=== PATIENT | male | born 1990 | race Caucasian/White ===

== ENCOUNTER 2020-12-29 13:26 | Emergency (ER) | payer SELFPAY ==
[2020-12-29 13:46] VITALS: BP 131/82; PULSE 110; RESP 18; TEMP 36.7; O2SAT 95; BMI 22.6
--- NOTE | 2020-12-29 14:14 | ED_ITS ---
HPI - Wound/Laceration General: Chief Complaint: Wound/Laceration Stated Complaint: wrist lacceration. Time Seen by Provider: 12/29/20 13:39 Source: patient Mode of arrival: ambulatory Limitations: no limitations History of Present Illness: HPI narrative: Patient is a 30-year-old male who presents to ED today with a complaint of a laceration to his left wrist/forearm that he sustained accidentally after cutting it with a box knife while working on a coffee table. Tetanus UTD. Onset (ago): hour(s) Extremity Location: Left: forearm Place: home Patient tetanus UTD: Yes Context: accidental Associated symptoms: Reports no associated symptoms Treatments prior to arrival: tourniquet Review of Systems Musc: Reports: extremity pain (L forearm) Skin/Breast: Reports: other (laceration L wrist/forearm) Neuro: Denies: numbness in extremities, weakness in extremities or sensory changes Physical Exam Const: COMMON NORMALS: no acute distress, average body habitus, patient oriented x3, no limitations, alert and well nourished Extremity: GENERAL: Yes normal exam except as noted OTHER: 1cm laceration to volar ulnar L wrist/forearm Neuro: COMMON NORMALS: patient oriented x3, moves all extremities, no focal motor deficits and no sensory deficits noted SENSORIUM/ORIENTATION: Yes alert OTHER: can flex/extend all digits and wrist joint against resistance; normal cap refill and pulses Skin: Full Arm Front Left: 1. 1cm laceration; no bleeding; NV intact Procedures Laceration Laceration 1: Site: upper extremity Side (If applicable): left Size (cm): 1.0 Description: linear Depth: simple, single layer Local Anesthetic: lidocaine 1% and with epi Amount of anesthesia used (mL): 1.0 Pre-repair: wound explored and irrigated extensively Skin layer closed with: nylon Size (cm): 5-0 Number of sutures: 2 Technique: simple, interrupted Course Vital Signs: Vital signs: Vital Signs Temperature 98.0 F 12/29/20 13:46 Pulse Rate 110 H 12/29/20 13:46 Respiratory Rate 18 12/29/20 13:46 Blood Pressure 131/82 12/29/20 13:46 Pulse Oximetry 95 12/29/20 13:46 Discharge Plan Discharge Patient Disposition: Home Clinical Impression: Laceration of forearm, left Qualifiers: Encounter type: initial encounter Qualified Code(s): S51.812A - Laceration without foreign body of left forearm, initial encounter Condition: Stable Discharge Orders: Discharge ED (Routine); Ordered 12/29/20 Ordered By: Magy Morel Patient Instructions: Suture Care (ED), Laceration (ED) Activity Restrictions/Additional Instructions: Keep wound/laceration clean with warm soap and water twice daily. Monitor for signs of infection such as redness, swelling, increased pain, or drainage. Please seek medical re-evaluation if these occur. If you received sutures today these will need to be removed (unless you were told by the provider that they are absorbable). The provider should have discussed with you the length of time until removal-7 DAYS. You may return to the emergency department for this serv ice. If your wound was closed with Steri-Strips or glue/adhesive these will fall off within the next week or so. Coding Level of Care Code ED Instrument Calibrator for Mahogany Zapata
== END 2020-12-29 15:00 | disposition home or self-care (01) ==
PROVIDERS: Emergency Provider Physician Assistant
DX: S51.812A Laceration without foreign body of left forearm, initial encounter (principal); W26.0XXA Contact with knife, initial encounter
CPT/HCPCS: 12001; 99282

== ENCOUNTER → 2022-06-13 14:38 | Outpatient (BNVA) | payer MEDICAID, SELFPAY | PROVIDERS: Visit Provider Nurse Practitioner Family | DX: M25.511 Pain in right shoulder (principal) | CPT/HCPCS: 73030 ==

== ENCOUNTER 2024-06-10 11:24 | Emergency (ER) | payer BC, MEDICAID, SELFPAY ==
[2024-06-10 11:26] VITALS: BP 139/78; PULSE 118; RESP 13; TEMP 37.2; O2SAT 95; BMI 25.0
--- NOTE | 2024-06-10 11:30 | CT_ITS ---
WS: [id number] CT HEAD NONCONTRAST HISTORY: new onset seizures, headache TECHNIQUE: Contiguous axial imaging performed through the brain. Bone and soft tissue windows. Sagitt al and coronal reformats reviewed. All CT scans at [facility] use at least one of these dose optimization techniques: automated exposure control; mA and/or kV adjustment per patient size (includ es targeted exams where dose is matched to clinical indication); or iterative reconstruction. DLP: 1017.78 mGy.cm COMPARISON: 08/29/2016 No acute intracranial hemorrhage, midline shift or mass effect. No atrophy or prior infarcts or herniation. Ventricles: Normal size with no hydrocephalus. Paranasal sinuses: Mild mucoperiosteal thickening in the frontal and anterior ethmoid air cells. No a ir-fluid levels. Mastoid air cells: Increasing fluid and soft tissue in the RIGHT mastoid air cells and extending into the inner ear surrounding the ossicles. Similar to the prior study. Calvarium and scalp: Skull is intact with no soft tissue edema or swelling. CT/CT head wo con* 63388 IMPRESSION: 1. No acute intracranial hemorrhage or edema. 2. No prior infarct or hydrocephalus. 3. Increased soft tissue in the RIGHT mastoid air cells extending into the inn er ear surround the ossicles. Suspect cholesteatoma.
--- NOTE | 2024-06-10 11:32 | ECG_ITS ---
[facility] Test Date: 2024-06-10 Pat Name: Lele Tejeda Department: Room: Gender: Male Design Inserter: : 1990 Requested By: Angelica Bunch Order Number: [id number] Vallecillo MD: Flaco Rubio M.D. Measurements Intervals [place] Rate: 118 P: 57 [place]: 144 QRS: 72 QRSD: 87 T: 51 QT: 303 QTc: 425 Interpretive Statements SINUS TACHYCARDIA No previous ECG available for comparison Electronically Signed On 06-12-2024 22:02:20 IVORY POLISHER by Flaco Rubio M.D. [id number]
--- NOTE | 2024-06-10 11:41 | W.ED.SEIZURE ---
HPI - Seizure General: Chief Complaint: Seizure Stated Complaint: Seizures Time Seen by Provider: 06/10/24 11:26 History of Present Illness: HPI Narrative: 33-year-old man with a history of anxiety who presents emergency room after having a possible seizure. He has no diagnosis of seizures. Family reports that he seized for a few minutes. It started with shaking of his leg and then full body shaking. He did bite his tongue. No loss of bowel or bladder. He did have some postictal confusion/somnolence. This has now resolved. He says he does not remember the episode. He also reports a headache. Related Data Home Medications Medication Instructions Recorded Confirmed No Known Home Medications 06/10/24 06/10/24 Allergies Allergy/AdvReac Type Severity Reaction Status Date / Time No Known Allergies Allergy Verified 06/10/24 11:36 Review of Systems Narrative: Constitutional symptoms: Negative except as documented in HPI. Skin symptoms: Negative except as documented in HPI. Eye symptoms: Negative except as documented in HPI. ENMT symptoms: Negative except as documented in HPI. Respiratory symptoms: Negative except as documented in HPI. Cardiovascular symptoms: Negative except as documented in HPI. Gastrointestinal symptoms: Negative except as documented in HPI. Genitourinary symptoms: Negative except as documented in HPI. Musculoskeletal symptoms: Negative except as documented in HPI. Neurologic symptoms: Negative except as documented in HPI. Psychiatric symptoms: Negative except as documented in HPI. Endocrine symptoms: Negative except as documented in HPI. [facility] ED PFSH: Medical History Generalized anxiety disorder Psychiatric care Physical Exam Narrative: EXAM NARRATIVE: General: Alert, no acute distress. Skin: Warm, dry. Head: Normocephalic, atraumatic. Neck: Supple, trachea midline. Eye: Extraocular movements are intact. Ears, nose, mouth and throat: mucosa moist. Cardiovascular: Regular, Normal peripheral perfusion. Respiratory: Lungs are clear to auscultation, respirations are non-labored, breath sounds are equal, Symmetrical chest wall expansion. Gastrointestinal: Soft, Nontender, Non distended Musculoskeletal: Normal ROM, no deformity. Neurological: Alert and oriented, No focal neurological deficit observed. Psychiatric: Cooperative, appropriate mood & affect. Course Vital Signs: Vital signs: Vital Signs Temperature 99 F 06/10/24 11:26 Pulse Rate 128 H 06/10/24 13:23 Respiratory Rate 21 H 06/10/24 13:23 Blood Pressure 171/83 06/10/24 13:23 Pulse Oximetry 95 06/10/24 13:23 Oxygen Delivery Me thod Room Air 06/10/24 13:23 MDM - Seizure MDM Narrative Medical decision making narrative: Medical decision making: Differential diagnosis including but not limited to and based on the above HPI, review of systems and physical exam: Concern for seizure. Workup done to evaluate severity with a lactic acid. Orders placed to evaluate differential diagnosis based on the above differential, HPI and physical exam EKG: Time 11:32 AM. Rate 118. Sinus tachycardia, No ST-T changes, no ectopy, normal DE & QRS intervals, This was reviewed and interpreted by myself the ER physician at 1135 Lab Review: Laboratory results were reviewed and interpreted by myself the emergency room physician. No leukocytosis. No anemia. BUN and creatinine are near normal at 15 and 1.1. Lactate was mildly elevated at 2.5. CT of the head without contrast: No acute hemorrhage or edema. No obvious masses. There are some right mastoid air cells. I discussed this with him and his and this is a known finding and they were planning on some point getting an MRI. This was reviewed and interpreted by myself the emergency room physician. I also reviewed the radiology report. Consultation: I spoke with Dr. Rodriguez who is on-call for the neurology service. He will see the patient in follow-up in the clinic. No initiation of antiepileptics at this point. Has only had 1 seizure. He recommends an MRI as an outpatient with and without contrast. I reviewed the patient's medical record. Reexamination: Patient remained stable. No increased work of breathing. No altered mental status. No focal motor deficits. I discussed the importance of not driving as he could injure or kill himself or others if he had a seizure while he was driving. He expresses understanding. Assessment and plan: Seizure Anxiety Tachypnea/hypocapnia - Discharged home - Discussed findings and plan with patient. Answered any questions. - All laboratory values were reviewed and interpreted personally by myself, the ER physician - All imaging was reviewed and interpreted personally by myself, the ER physician. - Evaluation and treatment of this problem were appropriate in the emergency setting Lab Data 06/10/24 11:11 06/10/24 11:11 Labs: Radiology Impressions Head CT 06/10/24 11:30 IMPRESSION: 1. No acute intracranial hemorrhage or edema. 2. No prior infarct or hydrocephalus. 3. Increased soft tissue in the RIGHT mastoid air cells extending into the inner ear surround the ossicles. Suspect cholesteatoma. Laboratory Results WBC 9.42 10^3/uL (3.29-11.43) 06/10/24 11:11 RBC 5.19 10^6/uL (3.85-5.65) 06/10/24 11:11 Hgb 16.40 g/dL (11.27-16.99) 06/10/24 11:11 Hct 44.9 % (37-53) 06/10/24 11:11 MCV 86.5 fl (82-101) 06/10/24 11:11 MCH 31.6 pg (27-33) 06/10/24 11:11 MCHC 36.5 g/dL (30-55) 06/10/24 11:11 RDW 11.7 % (12.1-15.1) L 06/10/24 11:11 Plt Count 297 10^3/cmm (157-399) 06/10/24 11:11 MPV 9.2 fL (7.4-10.4) 06/10/24 11:11 Neut % (Auto) 66.9 % 06/10/24 11:11 Lymph % (Auto) 22.1 % 06/10/24 11:11 [place] % (Auto) 9.3 % 06/10/24 11:11 Eos % (Auto) 0.6 % 06/10/24 11:11 Baso % (Auto) 0.5 % 06/10/24 11:11 Neut # (Auto) 6.29 10^3/uL (1.8-7.7) 06/10/24 11:11 Lymph # (Auto) 2.1 10^3/uL (0.8-4.8) 06/10/24 11:11 [place] # (Auto) 0.9 10^3/uL (0.2-0.9) 06/10/24 11:11 Eos # (Auto) 0.1 10^3/uL (0.0-0.8) 06/10/24 11:11 Baso # (Auto) 0.1 10^3/uL (0.0-0.1) 06/10/24 11:11 Nucleated RBC % (auto) 0 % 06/10/24 11:11 Nucleated RBCs # 0.0 /100WBC 06/10/24 11:11 Specimen Type Arterial 06/10/24 11:45 Sample Site Radial, right 06/10/24 11:45 ABG pH 7.52 (7.35-7.45) H 06/10/24 11:45 ABG pCO2 34.5 mmHg (35-45) L 06/10/24 11:45 ABG pO2 55.6 mmHg (80.0-100.0) L 06/10/24 11:45 ABG PO2/FiO2 Ratio 264 06/10/24 11:45 ABG HCO3 27.8 mmol/L (22-26) H 06/10/24 11:45 ABG O2 Saturation 92.5 06/10/24 11:45 ABG Base Excess 5.1 mmol/L (-2.0-2.0) H 06/10/24 11:45 Dwayne Test Pos 06/10/24 11:45 A-a O2 Gradient 6.8 mmHg (5-10) 06/10/24 11:45 Hematocrit 49.6 % (42-52) 06/10/24 11:45 Hgb O2 Saturation 91.4 % (95-100) L 06/10/24 11:45 Carboxyhemoglobin 1.0 %THgb (0.4-20.1) 06/10/24 11:45 Methemoglobin 0.2 % (0.4-1.5) L 06/10/24 11:45 Total Hemoglobin 16.2 g/dL (14-18) 06/10/24 11:45 Sodium 140.0 mmol/L (131-143) 06/10/24 11:45 Potassium 3.8 mmol/L (3.5-5.0) 06/10/24 11:45 Glucose 85.0 mg/dL (70-115) 06/10/24 11:45 Ionized Calcium 1.1 mmol/L (1.1-1.4) 06/10/24 11:45 O2 Delivery Device Room air 06/10/24 11:45 FiO2 21.0 % 06/10/24 11:45 Home Health Administrator ID Monro 06/10/24 11:45 Sodium 138 mmol/L (136-145) 06/10/24 11:11 Potassium 3.6 mmol/L (3.5-5.1) 06/10/24 11:11 Chloride 98 mmol/L (98-107) 06/10/24 11:11 Carbon Dioxide 29 mmol/L (22-29) 06/10/24 11:11 Anion Gap 14.6 (5-19) 06/10/24 11:11 BUN 15 mg/dL (6-20) 06/10/24 11:11 Creatinine 1.1 mg/dL (0.7-1.2) 06/10/24 11:11 GFR Calculation 77.1 mL/min (90-130) L 06/10/24 11:11 Glucose 91 mg/dL (65-115) 06/10/24 11:11 Calculated Osmolality 286 mOsm/kg (285-295) 06/10/24 11:11 Lactic Acid 2.4 mmol/L (0.5-2.2) H 06/10/24 11:11 Calcium 9.5 mg/dL (8.5-10.5) 06/10/24 11:11 Total Bilirubin 0.4 mg/dL (0.15-1.2) 06/10/24 11:11 AST 16 U/L (0-40) 06/10/24 11:11 ALT 17 U/L (0-41) 06/10/24 11:11 Alkaline Phosphatase 120 U/L (40-130) 06/10/24 11:11 Total Protein 7.8 g/dL (6.6-8.7) 06/10/24 11:11 Albumin 4.4 g/dL (3.5-5.2) 06/10/24 11:11 Globulin 3.4 g/dL (1.3-4.6) 06/10/24 11:11 Urine Color Yellow (Yellow) 06/10/24 12:45 Urine Appearance Cloudy (CLEAR) A 06/10/24 12:45 Urine pH 7.0 (5-7) 06/10/24 12:45 Ur Specific [place] 1.026 (1.005-1.030) 06/10/24 12:45 Urine Protein Negative (Negative) 06/10/24 12:45 Urine Glucose (UA) Negative (Normal) 06/10/24 12:45 Urine Ketones Trace (Negative) 06/10/24 12:45 Urine Blood Negative (Negative) 06/10/24 12:45 Urine Nitrate Negative (Negative) 06/10/24 12:45 Urine Bilirubin Negative (Negative) 06/10/24 12:45 Urine Urobilinogen 1.0 mg/dL (Negative) 06/10/24 12:45 Ur Leukocyte Esterase Negative (Negative) 06/10/24 12:45 Urine RBC 0-2 /hpf (0-2) 06/10/24 12:45 Urine WBC 0-5 /hpf (0-5) 06/10/24 12:45 Ur Squamous Epith Cells 0-5 /hpf (0-5) 06/10/24 12:45 Amorphous Sediment Not Reportable 06/10/24 12:45 Urine Bacteria None seen /hpf (NONE) 06/10/24 12:45 Hyaline Casts 0.81 /lpf 06/10/24 12:45 Urine Opiates Screen Negative ng/mL (Negative) 06/10/24 12:45 Ur Barbiturates Screen Negative ng/mL (Negative) 06/10/24 12:45 Ur Phencyclidine Scrn Negative ng/mL (Negative) 06/10/24 12:45 Ur Amphetamines Screen Positive ng/mL (Negative) H 06/10/24 12:45 U Benzodiazepines Scrn Negative ng/mL (Negative) 06/10/24 12:45 Urine Cocaine Screen Negative ng/mL (Negative) 06/10/24 12:45 U Marijuana (THC) Screen Negative ng/mL (Negative) 06/10/24 12:45 All radiology interpretation(s) finalized by discharge Discharge Plan Discharge Patient Disposition: Home Clinical Impression: New onset seizure Condition: Stable Prescriptions: No Action No Known Home Medications Discharge Orders: Discharge ED (Routine); Ordered 06/10/24 Ordered By: Angelica Gomez Referrals: Xu Rodriguez MD [Physician] - 4-7 days (Please call for a follow-up appointment with Dr. Rodriguez.) Discharge Diet: Usual diet Discharge Activity: Limit activity as instructed Patient Instructions: New-Onset Seizure in Adults (ED), Opioid Safety, Pain Management Activity Restrictions/Additional Instructions: Please follow-up with your primary provider in the next few days. Dr. Rodriguez recommends that your provider order an MRI with and without contrast to rule out MTS. Medial temporal sclerosis No driving until you are cleared by your primary care physician or by neurology. Please call for an appointment with neurology as soon as possible. Thank you for choosing [facility] for your healthcare needs today. Please realize this is an emergency room and that we are providing you with a medical screening exam and this may not be complete and all inclusive of all the testing and or work up that you may need to determine your ailment or severity of your illness. You have been screened and evaluated and felt safe for discharge. Health conditions do change or evolve sometimes and as such it is important that you follow up with your Primary Doctor to be re checked, 3-5 days is a general good time frame for follow up. You are always welcome to return to the ED for re assessment if your symptoms are worsening or you have new concerns Coding Level of Care Code ED Floorworker Lasting for Mahogany Zapata
[2024-06-10 11:49] LABS: Basophils # 0.1 10^3/uL (0.0-0.1); Basophils % 0.5 %; Eosinophils # 0.1 10^3/uL (0.0-0.8); Eosinophils % 0.6 %; Hematocrit 44.9 % (37-53); Lymphocytes # 2.1 10^3/uL (0.8-4.8); Lymphocytes % 22.1 %; Mean Corpuscular HGB Conc 36.5 g/dL (30-55); Mean Corpuscular Hemoglobin 31.6 pg (27-33); Mean Corpuscular Volume 86.5 fl (82-101); Mean Platelet Volume 9.2 fL (7.4-10.4); Monocytes # 0.9 10^3/uL (0.2-0.9); Monocytes % 9.3 %; Neutrophils # 6.29 10^3/uL (1.8-7.7); Neutrophils % 66.9 %; Nucleated Red Blood Cells % 0 %; Platelet Count 297 10^3/cmm (157-399); Red Blood Count 5.19 10^6/uL (3.85-5.65); Red Cell Distribution Width 11.7 % (12.1-15.1); White Blood Count 9.42 10^3/uL (3.29-11.43)
[2024-06-10 11:58] LABS: ABG PCO2 34.5 mmHg (35-45); ABG PH Result 7.52 (7.35-7.45); Alveolar-Arterial Oxygen Gradi 6.8 mmHg (5-10); Arterial Blood Gas Hematocrit 49.6 % (42-52); Base Excess ABG 5.1 mmol/L (-2.0-2.0); Blood Gas Allen Test Pos; Blood Gas Operator Identificat MONRO; Blood Gas Sample Site Radial, right; Blood Gas Sample Type Arterial; HCO3 ABG 27.8 mmol/L (22-26); HGB O2 Sat 91.4 % (95-100); Ionized Calcium Level - ABG 1.1 mmol/L (1.1-1.4); Methemoglobin 0.2 % (0.4-1.5); Oxygen Device ROOM AIR; Oxygen Saturation ABG 92.5; PO2 ABG 55.6 mmHg (80.0-100.0); PO2 FiO2 Ratio Arterial Blood 264; Potassium Level - ABG 3.8 mmol/L (3.5-5.0); Total Hemoglobin 16.2 g/dL (14-18)
[2024-06-10 12:05] LABS: Alanine Aminotransferase 17 U/L (0-41); Albumin Level 4.4 g/dL (3.5-5.2); Alkaline Phosphatase 120 U/L (40-130); Anion Gap 14.6 (5-19); Aspartate Amino Transferase 16 U/L (0-40); Blood Urea Nitrogen 15 mg/dL (6-20); Calcium 9.5 mg/dL (8.5-10.5); Carbon Dioxide 29 mmol/L (22-29); Chloride 98 mmol/L (98-107); Creatinine Clr Calc Pharmacy 86.6208; Globulin 3.4 g/dL (1.3-4.6); Glomerular Filtration Rate 77.1 mL/min (90-130); Glucose 91 mg/dL (65-115); Osmolality Calculated 286 mOsm/kg (285-295); Potassium 3.6 mmol/L (3.5-5.1); Sodium 138 mmol/L (136-145); Total Bilirubin 0.4 mg/dL (0.15-1.2); Total Protein 7.8 g/dL (6.6-8.7)
[2024-06-10 12:06] LABS: Lactic Sepsis W/Reflex 2.4 mmol/L (0.5-2.2)
[2024-06-10 12:44] VITALS: BP 119/90; PULSE 123; RESP 18; O2SAT 95
[2024-06-10 12:55] LABS: Bilirubin Urine Negative (Negative); Blood Urine Negative (Negative); Glucose Urine UA Negative (Normal); Ketones Urine Trace (Negative); Leukocyte Esterase Urine Negative (Negative); Nitrate Urine Negative (Negative); Protein Urine Negative (Negative); Specific Gravity, Urine 1.026 (1.005-1.030); Urine Appearance Cloudy (CLEAR); Urine Color Yellow (Yellow)
[2024-06-10 13:00] LABS: Bacteria Urine None Seen /hpf; Hyaline Casts Urine 0.81 /lpf; RBC Urine 0-2 /hpf (0-2); Squamous Epithelial Cell Urine 0-5 /hpf (0-5); WBC Urine 0-5 /hpf (0-5)
[2024-06-10 13:04] LABS: Amphetamines Screen Urine Positive (Negative); Barbiturates Screen Urine Negative (Negative); Benzodiazepines Screen Urine Negative (Negative); Cocaine Screen Urine Negative (Negative); Opiate Screen Urine Negative (Negative); PCP Screen Urine Negative (Negative); THC Screen Urine Negative (Negative)
[2024-06-10 13:23] VITALS: BP 171/83; PULSE 128; RESP 21; O2SAT 95
[2024-06-10 13:33] LABS: Reflex Lactate Order REFLEX LACTIC ORDERD
[2024-06-10 14:39] VITALS: BP 138/94; PULSE 115; RESP 19; O2SAT 95
== END 2024-06-10 14:41 | disposition home or self-care (01) ==
PROVIDERS: Emergency Provider Emergency Medicine
DX: G40.89 Other seizures (principal)
CPT/HCPCS: 36415; 36600; 70450; 80051; 80053; 80306; 81001; 82330; 82805; 83605; 85025; 93005; 99284